=== PATIENT | female | born 1990 | race Caucasian/White ===

== ENCOUNTER 2018-05-25 09:27 | Emergency (ER) | payer OTHER ==
[~2018-05-25] VITALS: Ht 154.9 cm; Wt 50.8 kg
== END 2018-05-25 13:42 | disposition home or self-care (01) ==
LOC: ER 09:27
DX: R07.89 Other chest pain (principal); F06.4 Anxiety disorder due to known physiological condition

== ENCOUNTER 2018-10-03 09:04 | Emergency (ER) | payer OTHER ==
[~2018-10-03] VITALS: Ht 154.9 cm; Wt 49.4 kg
[2018-10-03] MEDS ORDERED: PRILOSEC10 MG (09:20)
[2018-10-03] MEDS ORDERED: BENTYL10 MG/1 ML (09:20)
[2018-10-03] MEDS ORDERED: OMEPRAZOLE40 MG (09:26)
== END 2018-10-03 13:01 | disposition home or self-care (01) ==
LOC: ER 09:04
DX: K29.70 Gastritis, unspecified, without bleeding (principal); K59.09 Other constipation; R42 Dizziness and giddiness